=== PATIENT | female | born 1960 | race Caucasian/White ===

== ENCOUNTER 2019-11-02 05:45 | Observation (INO) | payer OTHER ==
--- NOTE | 2019-11-01 16:00 | Diagnostic Imaging Report ---
EXAMINATION: CHEST 2 VIEWS INDICATION: Pre-operative COMPARISON: None FINDINGS: LINES/TUBES:None LUNGS:The lungs are well-inflated. No focal consolidation or pulmonary edema. PLEURA:No pleural effusion or pneumothorax. MEDIASTINUM:The cardiomediastinal silhouette appears normal in size and shape. BONES/SOFT TISSUES:No acute osseous injury. ABDOMEN:No free air under the diaphragm. IMPRESSION: No focal pneumonia or pulmonary edema. Signed by: Palma Rose MD on 11/01/2019 3:57 PM
[2019-11-01 16:28] LABS: BASOPHILS # (AUTO) 0.1 (0.0-0.1); EOSINOPHILS # (AUTO) 0.2 (0.0-0.4); EOSINOPHILS % 1.2 % (0.0-6.0); HEMATOCRIT 39.9 % (34.2-44.1); LYMPHOCYTES # (AUTO) 4.8 (1.0-3.2); LYMPHOCYTES % 33.3 % (18.0-39.1); MEAN CORPUSCULAR HEMOGLOBIN 34.1 pg (28-32); MEAN CORPUSCULAR HGB CONC 32.6 g/dL (31-35); MEAN CORPUSCULAR VOLUME 104.7 fL (81-99); MONOCYTES # (AUTO) 1.9 (0.2-0.8); MONOCYTES % 12.9 % (4.4-11.3); NEUTROPHILS # (AUTO) 7.3 (2.1-6.9); NEUTROPHILS % 50.3 % (38.7-80.0); PLATELET COUNT 293 x10e3/uL (140-360); RED BLOOD COUNT 3.81 x10e6/uL (3.6-5.1); RED CELL DISTRIBUTION WIDTH 13.9 % (11.7-14.4)
[2019-11-01 16:39] LABS: INR 0.91; PROTHROMBIN TIME 12.8 seconds (11.9-14.5)
[2019-11-01 16:46] LABS: ANION GAP 14.6 mmol/L (8-16); CREATININE, SERUM 1.32 mg/dL (0.57-1.11); POTASSIUM 3.6 mmol/L (3.5-5.1)
[~2019-11-02] VITALS: Ht 167.6 cm; Wt 118.4 kg
[~2019-11-02 05:45] MED LIST: ACTEMRA80 MG/4 ML IV; CALCIUM PO; EFFEXOR XR 3737.5 MG PO; FAMOTIDINE20 MG PO; FOLIC ACID PO; GABAPENTIN300 MG PO; HYDROXYZINE HCL25 MG PO; METHOTREXATE2.5 MG PO; METHYLPREDNISOLO4 M1 PO; NORCO 10-325 T1 EACH PO; OMEPRAZOLE40 MG PO; POTASSIUM CHLO10 ME1 PO; PROLIA60 MG/1 ML INJ; SIMVASTATIN20 MG PO; SOTALOL80 MG PO; VENLAFAXINE HC100 MG PO; VENLAFAXINE HCL75 MG PO; VITAMIN D34000 UNIT PO; XARELTO2.5 MG PO; ZOLPIDEM TARTRAT5 MG PO; ZYRTEC10 M3 PO
[2019-11-02] MEDS ORDERED: VANCOMYCIN 1GM/NS 250 ML 250 ML ONE (06:09)
[2019-11-02] MEDS ORDERED: THROMBIN FOR SOLN 5,000 UNIT VIAL ONE (06:24)
[2019-11-02] MEDS ORDERED: BACITRACIN 50,000 UNIT VIAL ONE (06:24)
[2019-11-02] MEDS ORDERED: LIDOCAINE 1% W/EPINEPHRINE 20 ML VIAL ONE (06:24)
[2019-11-02] MEDS: LACTATED RINGER'S 1,000 ML IV SCH ×2 (09:21→17:41)
[2019-11-02] MEDS ORDERED: HYDROMORPHONE 1MG/1ML INJ ONE (09:24)
[2019-11-02] MEDS ORDERED: ACETAMINOPHEN 325 MG TAB PO PRN (09:30)
[2019-11-02] MEDS ORDERED: MORPHINE SULFATE 5 MG/ML VIAL IM PRN (09:30)
[2019-11-02] MEDS ORDERED: ONDANSETRON HCL INJ 2MG/ML 2ML 2 MG/ML VIAL IV PRN (09:30)
[2019-11-02] MEDS ORDERED: PROMETHAZINE HCL (IM) 25 MG/ML VIAL IM PRN (09:30)
[2019-11-02] MEDS ORDERED: HYDROMORPHONE 2MG/ML 2 MG/ML ML IV PRN (09:30)
[2019-11-02] MEDS ORDERED: MAGNESIUM/ALUMINUM/SIMETHICONE 30 ML UDC PO PRN (09:30)
--- NOTE | 2019-11-02 11:00 | NUR ---
ARRIVED VIA STRETCHER FROM PACU, AA&OX3, 2LNC, HARD COLLAR IN PLACE, ANTERIOR DRESSING INTACT, DTV, BILAT LE SCD'S AND MELBA'S IN PLACE, PAIN 03/25 AT THIS TIME, ORIENTED TO ROOM AND CALL LIGHT SYSTEM, CALL LIGHT WITHIN REACH
[2019-11-02] MEDS ORDERED: SUCCINYLCHOLINE CHLORIDE 20 MG/ML 10ML VIAL ONE (11:03)
[2019-11-02] MEDS ORDERED: PROPOFOL IV EMULSION 10 MG/ML 20 ML VIAL ONE (11:03)
[2019-11-02] MEDS ORDERED: ROCURONIUM BROMIDE 10 MG/ML 5ML VIAL ONE (11:03)
[2019-11-02] MEDS ORDERED: GLYCOPYRROLATE INJ 0.2 MG/ML VIAL ONE (11:03)
[2019-11-02] MEDS ORDERED: SEVOFLURANE INHAL SOLN 250 ML PEN BTL ONE (11:03)
[2019-11-02] MEDS ORDERED: NEOSTIGMINE 1 MG/ML 10ML VIAL ONE (11:03)
[2019-11-02] MEDS ORDERED: LIDOCAINE HCL 2% LOCAL INJ 5 ML SDV VIAL INJ ONE (11:03)
[2019-11-02] MEDS ORDERED: ONDANSETRON HCL INJ 2MG/ML 2ML 2 MG/ML VIAL ONE (11:03)
[2019-11-02] MEDS ORDERED: HYDROMORPHONE 1MG/1ML INJ IV PRN (11:15)
[2019-11-02] MEDS ORDERED: HYDROCODONE/APAP 10MG-325MG TAB PO SCH (12:00)
[2019-11-02] MEDS: OXYCODONE/ACETAMINOPHEN 5-325 1 EACH TABLET PO PRN ×2 (12:45→21:20)
[2019-11-02] MEDS: CARISOPRODOL 350 MG TAB PO PRN ×2 (12:45→21:30)
[2019-11-02] MEDS ORDERED: FENTANYL CITRATE/PF 100MCG/2 ML INJ ONE (12:49)
[2019-11-02] MEDS ORDERED: MIDAZOLAM HCL 2 MG/2 ML VIAL ONE (12:49)
--- NOTE | 2019-11-02 13:00 | NUR ---
TOLERATING LIQUID INTAKE AT THIS TIME, CALL LIGHT WITHIN REACH
[2019-11-02 13:30] VITALS: BP 170/86
[2019-11-02] MEDS ORDERED: CEFAZOLIN SOD 1 GM/NS 50ML 50 ML IV SCH (14:00)
[2019-11-02] MEDS: HYDROCORTISONE SOD SUCCINATE 100 MG VIAL IV SCH ×2 (14:00→21:20)
--- NOTE | 2019-11-02 14:49 | Operative Report ---
DATE OF PROCEDURE: 11/02/2019 SURGEON: Eloy Lau MD PREOPERATIVE DIAGNOSIS: C4-5 and C5-6 spondylosis and spondylolisthesis with radiculopathy. POSTOPERATIVE DIAGNOSIS: C4-5 and C5-6 spondylosis and spondylolisthesis with radiculopathy. PROCEDURES: 1. C4-5 anterior cervical diskectomy and microsurgical osteophyte resection and allograft fusion, 90005. 2. C5-6 anterior cervical diskectomy and microsurgical osteophyte resection and allograft fusion, 96575. 3. Preparation of tricortical iliac crest allograft, 82178. 4. C4-C5-C6 anterior cervical plating with Synthes CSLP plate, 29538. ANESTHESIA: General. INDICATIONS: The patient is a 59-year-old woman with rheumatoid arthritis, who presents with stair stepping spondylolisthesis, worst at C4-5 and disk herniation and foraminal stenosis at C5-6. She was taken to surgery for two-level ACDF. PROCEDURE IN DETAIL: After induction of general anesthesia, the patient was placed on the operating table in supine position. The right side of the neck was prepped and draped in sterile fashion. The fluoroscopic C-arm was positioned in cross-table lateral orientation. A small transverse incision was created on the right side of the neck superimposed on the C5 vertebral body as determined by fluoroscopy. The platysma was divided in line with the incision. A subplatysmal dissection was carried out and avascular plane of dissection was developed medial to the sternocleidomastoid muscle and was followed medial to the carotid sheath to the anterior border of cervical spine. The deep cervical fascia was opened. The esophagus was retracted to the left. The attachments of the longus colli muscles to the anterolateral aspects of vertebral bodies of C4, C5, and C6 were divided. The anterior longitudinal ligament was resected. [place] posts were inserted into C4 and C6. The [place] distractor was used to distract both disk spaces simultaneously. The anterior annuli of disks were incised with #11 blade and the contents of both disks were thoroughly evacuated with angled curettes and pituitary rongeurs. The posterior osteophytes were meticulously drilled with a 2 mm cutting shannan until they were completely removed. The posterior annulus of the disk, herniated disk material, and the posterior longitudinal ligament were resected layer by layer until the dura was fully exposed and decompressed. The medial aspects of the uncinate processes were resected bilaterally to further expose any compressed origins of the corresponding nerve roots. After satisfactory decompression had been achieved, the endplates were prepared for fusion. Two pieces of tricortical iliac crest allograft were cut to size and shapes of the disk spaces and were inserted into disk spaces under distraction and fluoroscopic guidance. The distraction was released and distraction posts were removed. A Synthes CSLP variable type anterior cervical plate was selected and was affixed to the vertebral bodies of C4, C5 and C6 with three pairs of 14 x 4.35 mm screws. All screw holes were first drilled and tapped on the lateral fluoroscopic guidance. All screws were locked with the appropriate locking screws. An excellent construct was obtained. The wound was copiously irrigated with bacitracin solution. Meticulous hemostasis was secured. Retraction was removed. The platysma was closed with 3-0 Vicryl sutures. The skin was closed with 4-0 Monocryl sutures in subcuticular fashion. Steri-Strips and dressing were applied. The patient was awakened, extubated, and taken to postanesthesia care unit in stable condition. No intraoperative complications were encountered. ESTIMATED BLOOD LOSS: 30 mL. Eloy Lau MD PP/JANUARY /[id number]
[2019-11-02] MEDS ORDERED: HYDROCODONE/APAP 10MG-325MG TAB PO PRN (15:45)
[2019-11-02] MEDS ORDERED: GABAPENTIN 300 MG CAP PO SCH (17:00)
[2019-11-02] MEDS ORDERED: SOTALOL HCL 80 MG TAB PO SCH (17:00)
[2019-11-02 17:15] VITALS: BP 116/82
[2019-11-02] MEDS: VANCOMYCIN 1GM/NS 250 ML 250 ML IV SCH (17:41)
--- NOTE | 2019-11-02 17:42 | NUR ---
NEW 20G TO RIGHT HAND, PT TOLERATED WELL
--- NOTE | 2019-11-02 19:20 | NUR ---
Report received. Pt is alert and oriented x3. Respirations are even and unlabored. No acute distress noted. Anterior neck dressing noted, dry and intact. Hard collar in place. Call light within reach. Instruct to call for assistance. Bed locked and in low position. Continue to monitor closely
[2019-11-02 20:00] VITALS: BP 137/76
[2019-11-02] MEDS ORDERED: ZOLPIDEM TARTRATE 5 MG TAB PO PRN (21:00)
[2019-11-02] MEDS ORDERED: SIMVASTATIN 20 MG TAB PO SCH (21:00)
[2019-11-02] MEDS ORDERED: ZOLPIDEM TARTRATE 10 MG TAB PO SCH (21:00)
[2019-11-02] MEDS ORDERED: VENLAFAXINE HCL 75 MG TAB PO SCH (21:00)
[2019-11-02] MEDS ORDERED: FAMOTIDINE 20 MG TAB PO SCH (21:00)
[2019-11-02] MEDS ORDERED: NON-FORMULARY MEDICATION (Zolpidem Tartrate 10 MG) PO SCH (21:00)
[2019-11-02] MEDS: GABAPENTIN 300 MG CAP PO SCH (21:19)
[2019-11-02] MEDS: SOTALOL HCL 80 MG TAB PO SCH (21:20)
[2019-11-02 22:15] VITALS: BP 137/76
[2019-11-03] VITALS: BP 150/90
[2019-11-03] MEDS: LACTATED RINGER'S 1,000 ML IV SCH (02:34)
[2019-11-03 04:00] VITALS: BP 153/95
[2019-11-03] MEDS: OXYCODONE/ACETAMINOPHEN 5-325 1 EACH TABLET PO PRN ×2 (05:03→09:26)
[2019-11-03] MEDS: HYDROCORTISONE SOD SUCCINATE 100 MG VIAL IV SCH (05:03)
[2019-11-03] MEDS: VANCOMYCIN 1GM/NS 250 ML 250 ML IV SCH (05:03)
[2019-11-03] MEDS: CARISOPRODOL 350 MG TAB PO PRN ×2 (05:04→09:26)
--- NOTE | 2019-11-03 06:55 | NUR ---
Received patient lying in bed with eyes open. Respiration even and unlabored without SOB. Call light in reach.
--- NOTE | 2019-11-03 07:22 | Diagnostic Imaging Report ---
Cervical Spine, 2 views HISTORY: Status post surgery. COMPARISON: None. FINDINGS: On the lateral view, the cervical spine is visualized from the skull base to C7. The alignment is normal. Osteopenia. No acute displaced fracture is identified involving the visualized cervical spine. Limited sensitivity for detection of subtle fractures, ligamentous, vascular and spinal cord abnormalities. Status post anterior fusion of C4-C5 and C5-C6 with intact metallic plate and transfixing screws in adequate position. Mild multilevel facet arthropathy. Mild prevertebral soft tissue swelling likely postoperative. IMPRESSION: Status post anterior fusion of C4-C5 and C5-C6 with metallic plate and transfixing screws in adequate position. Signed by: Dr. Marshall Colorado M.D. on 11/03/2019 7:18 AM
[2019-11-03] MEDS ORDERED: PANTOPRAZOLE SOD 40 MG TABEC PO SCH (07:30)
[2019-11-03 08:02] VITALS: BP 144/83
[2019-11-03] MEDS: SOTALOL HCL 80 MG TAB PO SCH (08:20)
[2019-11-03] MEDS: GABAPENTIN 300 MG CAP PO SCH (08:20)
[2019-11-03 08:33] VITALS: BP 144/83
[2019-11-03] MEDS ORDERED: NON-FORMULARY MEDICATION (Venlafaxine Hcl 150 MG) PO SCH (09:00)
[2019-11-03] MEDS ORDERED: LORATADINE 10 MG TAB PO SCH (09:00)
[2019-11-03] MEDS ORDERED: POTASSIUM CHLORIDE 10MEQ EA PO SCH (09:00)
[2019-11-03] MEDS ORDERED: METHYLPREDNISOLONE 4 MG TAB PO SCH (09:00)
[2019-11-03] MEDS ORDERED: HYDROXYZINE HCL 25 MG TAB PO SCH (09:00)
[2019-11-03] MEDS ORDERED: METHYLPREDNISOLONE PO SCH (09:00)
[2019-11-03] MEDS ORDERED: VENLAFAXINE HCL 75 MG TAB PO SCH (09:00)
[2019-11-03] MEDS ORDERED: ONDANSETRON HCL 4 MG ORAL DISINTEGRATING TAB PO PRN (09:30)
--- NOTE | 2019-11-03 09:35 | NUR ---
ASSESSMENT: Spiritual concern Pt worried about COVID-19. Pt hopeful for discharge today. Intervention: Provided hospitality and information on how to reach reinsurance accountant, if needed. Outcome: No need to follow at this time. JOSEFINA LOO Appraisal Analyst Spiritual Care Department O: [phone]
--- NOTE | 2019-11-03 12:07 | NUR ---
PIV to right hand discontinued, catheter tip intact, no bleeding noted.
--- NOTE | 2019-11-03 13:13 | NUR ---
Discharge instructions regarding post-surgical pain provided. Verbalized understanding. Given discharge packet and medication prescription along with Dr. Lau's D/C instructions. All personal belongings taken. Transported via wheelchair to private vehicle.
[2019-11-07] MEDS ORDERED: ERGOCALCIFEROL 50,000 UNIT CAP PO SCH (09:00)
== END 2019-11-03 13:04 | disposition home or self-care (01) ==
LOC: OR 05:45 → PACU V 09:24 → MED/SURG 10:46
PROVIDERS: ADMIT Neurological Surgery; ATTEND Neurological Surgery
DX: M50.120 Mid-cervical disc disorder, unspecified level (principal); M43.12 Spondylolisthesis, cervical region; Z01.810 Encounter for preprocedural cardiovascular examination; Z01.811 Encounter for preprocedural respiratory examination; Z88.1 Allergy status to other antibiotic agents; Z88.0 Allergy status to penicillin; Z88.8 Allergy status to other drugs, medicaments and biological substances; I10 Essential (primary) hypertension; N18.9 Chronic kidney disease, unspecified; M06.9 Rheumatoid arthritis, unspecified; E24.2 Drug-induced Cushing's syndrome; T38.0X5A Adverse effect of glucocorticoids and synthetic analogues, initial encounter; I48.91 Unspecified atrial fibrillation; D68.51 Activated protein C resistance; E78.5 Hyperlipidemia, unspecified; J45.909 Unspecified asthma, uncomplicated; K27.9 Peptic ulcer, site unspecified, unspecified as acute or chronic, without hemorrhage or perforation
CPT/HCPCS: 36415; 71046; 72040; 77003; 80048; 85025; 85610; 85730; 86850; 86900; 88304; 93005; C1713; G0378; J0330; J1170; J1720; J2001; J2250; J2405; J2710; J3010; J3370; J3410; J7121; J7509